=== PATIENT | female | born 1960 | race American Indian/Alaskan Native ===

== ENCOUNTER 2016-09-01 12:39 | Outpatient (CLI) | payer OTHER ==
--- NOTE | 2016-09-01 14:35 | Cat Scan Report ---
CT scan of sinuses: History; polyps of the nasal cavity. Findings: There is complete opacification of the right maxillary sinus and the right nasal cavity. The medial wall of the right maxillary sinus appears thin. Obstructed right ostiomeatal complex. Nasal septum is in the midline. Marked mucosal thickening of the right frontal sinus and right sphenoid sinus. Left frontal ethmoid and maxillary sinus appears patent and well pneumatized. Impression: Opacified regions of the right maxillary sinus, the right ethmoid sinus ,right frontal and right sphenoid could be due to extensive mucosal thickening or coalescence of multiple polyps or inflammatory or neoplastic process.
== END 2016-09-01 12:40 | disposition home or self-care (01) ==
LOC: CT 12:39
PROVIDERS: ATTEND Otolaryngology
DX: J33.0 Polyp of nasal cavity (principal)
CPT/HCPCS: 70486

== ENCOUNTER 2019-09-18 10:02 | Emergency (ER) | payer OTHER ==
[2019-09-18 10:11] VITALS: BP 158/89
[2019-09-18] MEDS ORDERED: IBUPROFEN 800 MG TAB PO ONE (13:11)
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
--- NOTE | 2019-09-18 13:56 | XRay Report ---
Lumbar spine 3 views INDICATION: Low back pain. IMPRESSION: Multilevel discogenic and facet type arthropathy particularly at L5-S1 with there is mild bilateral neural foraminal narrowing. Signer Name: Davey Hong MD Signed: 09/18/2019 1:52 PM Workstation Name: [id number]
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
== END 2019-09-18 16:50 | disposition home or self-care (01) ==
LOC: ED 10:02
DX: S46.912A Strain of unspecified muscle, fascia and tendon at shoulder and upper arm level, left arm, initial encounter (principal); S39.012A Strain of muscle, fascia and tendon of lower back, initial encounter; Z91.040 Latex allergy status; Z90.710 Acquired absence of both cervix and uterus; Z79.899 Other long term (current) drug therapy; V49.49XA Driver injured in collision with other motor vehicles in traffic accident, initial encounter; Y93.89 Activity, other specified; Y92.410 Unspecified street and highway as the place of occurrence of the external cause; Y99.8 Other external cause status
CPT/HCPCS: 72100

== ENCOUNTER 2021-01-31 10:43 | Observation (INO) | payer SELFPAY ==
[2021-01-31 14:13] LABS: Basophils % (Auto) 0.8 % (0.0-1.8); Eosinophils # (Auto) 0.1 K/mm3 (0.0-0.4); Eosinophils % (Auto) 1.1 % (0.0-4.3); Hematocrit 37.5 % (30.3-42.9); Hemoglobin 12.7 gm/dl (10.1-14.3); Lymphocytes # (Auto) 3.1 K/mm3 (1.2-5.4); Lymphocytes % (Auto) 54.8 % (13.4-35.0); Mean Corpuscular HGB Conc 34 % (30-34); Mean Corpuscular Volume 99 fl (79-97); Monocytes # (Auto) 0.1 K/mm3 (0.0-0.8); Monocytes % (Auto) 1.4 % (0.0-7.3); Platelet Count 250 K/mm3 (140-440); Red Cell Distribution Width 13.3 % (13.2-15.2)
[2021-01-31 14:39] LABS: Alanine Aminotransferase 11 units/L (7-56); Albumin 4.1 g/dL (3.9-5); Blood Urea Nitrogen 9 mg/dL (7-17); Calcium 9.7 mg/dL (8.4-10.2); Hemolysis Index 33
[2021-01-31 15:03] LABS: BUN/Creatinine Ratio 15
--- NOTE | 2021-01-31 15:23 | XRay Report ---
CHEST 2 VIEWS INDICATION / CLINICAL INFORMATION: Chest pain. COMPARISON: None available. FINDINGS: SUPPORT DEVICES: None. HEART / MEDIASTINUM: The heart size and pulmonary vasculature are normal. The aorta is normal in ama rachael. LUNGS / PLEURA: No significant pulmonary or pleural abnormality. No pneumothorax. ADDITIONAL FINDINGS: No significant additional findings. IMPRESSION: No acute findings. Signer Name: Greg Andujar MD Signed: 01/31/2021 3:19 PM Workstation Name: [id number]
--- NOTE | 2021-01-31 17:46 | Emergency Department Report ---
ED Chest Pain HPI - General Chief Complaint: Back Pain/Injury Stated Complaint: LOWER BACK PAINS Time Seen by Provider: 01/31/21 16:50 Source: patient Mode of arrival: Ambulatory Limitations: No Limitations - History of Present Illness Initial Comments: 60-year-old female with only known medical history being hyperlipidemia presents complaining of left-sided chest pain that started this morning. Patient states that at approximately 8 AM, after she had woken up and gone to work, she began to feel a pain in the left side of her chest near the shoulder. The pain is described as a tightness and it was radiating down her left shoulder, arm, to her hand. While having the pain, she felt short of breath but denies any associated palpitations, nausea, diaphoresis, or any other symptoms. Of note, the patient reports that for the past 2 weeks or so she has been having intermittent pain in her right side and right lower back area lasting few minutes at a time and happening 2-3 times per day for the last 2 weeks. Her main concern was the chest pain which lasted for several hours and did not resolve until just prior to my interview and assessment. Other than the mentioned symptoms, she denies any associated headache, vision change, fever/chills, focal weakness, sensory changes, confusion, cough, abdominal pain, nausea/vomiting, dysuria, hematuria, or any other complaints. - Related Data Previous Rx's Medication Instructions Recorded Last Taken Type Cyclobenzaprine HCl [Flexeril 5 MG 5 mg PO QHS PRN #10 tab 09/18/19 Unknown Rx TAB] Ibuprofen [Motrin] 600 mg PO Q8H PRN #20 tablet 09/18/19 Unknown Rx Allergies Allergy/AdvReac Type Severity Reaction Status Date / Time latex Allergy Unknown Itching Verified 02/01/21 04:19 grass pollen-perennial rye, Allergy Headache Verified 02/01/21 02:17 standar Vitamin D AdvReac Unknown Headache Uncoded 02/01/21 04:19 Heart Score - HEART Score History: Highly suspicious EKG: Normal Age: 45-65 Risk factors: 1-2 risk factors Troponin: < normal limit HEART Score: 4 - EKG Read Time Time EKG Completed: 10:58 EKG Read Time: 11:05 ED Review of Systems ROS: Stated complaint: LOWER BACK PAINS Other details as noted in HPI Constitutional: denies: chills, fever Eyes: denies: eye pain, vision change ENT: denies: throat pain, congestion Respiratory: shortness of breath (with chest pain). denies: cough Cardiovascular: chest pain. denies: palpitations, edema, syncope Gastrointestinal: denies: abdominal pain, nausea, vomiting Genitourinary: denies: dysuria, frequency Musculoskeletal: back pain. denies: myalgia Skin: denies: rash Neurological: denies: headache, weakness, numbness, paresthesias ED Past Medical Hx - Past Medical History Previous Medical History?: Yes Additional medical history: high cholesterol - Surgical History Past Surgical History?: Yes Additional Surgical History: Partial hysterectomy - Social History Smoking Status: Current Every Day Smoker Substance Use Type: None - Medications Home Medications: Home Medications Medication Instructions Recorded Confirmed Last Taken Type Cyclobenzaprine HCl [Flexeril 5 MG 5 mg PO QHS PRN #10 tab 09/18/19 Unknown Rx TAB] Ibuprofen [Motrin] 600 mg PO Q8H PRN #20 tablet 09/18/19 Unknown Rx ED Physical Exam - General Limitations: No Limitations - Other Other exam information: GENERAL: Well developed and well nourished. No acute distress HEENT: Normocephalic. No obvious signs of trauma. Moist mucous membranes. EYES: Extraocular movements are intact. Pupils are equal round and reactive to light bilaterally NECK: Supple. Trachea is midline. LUNGS: Nonlabored breathing. Equal chest rise bilaterally. Clear to auscultation bilaterally. HEART/CARDIOVASCULAR: Regular rate and rhythm. No murmurs or rubs. VASCULAR: 2+ peripheral pulses. Cap refill < 2 seconds ABDOMEN: Abdomen is soft and nondistended. There is no significant tenderness, guarding or rebound. SKIN: Skin is warm and dry NEURO: Patient is awake, alert, and oriented. 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 No focal deficits. Normal motor and sensory exam throughout. Normal speech. Normal gait. MUSCULOSKELETAL: No obvious deformities. No significant tenderness. Normal ROM throughout. BACK/SPINE: No midline tenderness or step-offs of the C/T/L spine. No costovertebral angle tenderness. ED Course Vital Signs 01/31/21 01/31/21 01/31/21 10:51 16:51 16:52 Temperature 98.5 F Pulse Rate 72 64 63 Respiratory 18 18 18 Rate Blood Pressure 165/88 Blood Pressure 144/75 [Left] O2 Sat by Pulse 97 99 99 Oximetry 01/31/21 01/31/21 01/31/21 16:56 17:00 17:10 Temperature Pulse Rate 67 64 Respiratory 16 15 Rate Blood Pressure 158/93 158/93 Blood Pressure 158/93 [Left] O2 Sat by Pulse 100 100 Oximetry 01/31/21 01/31/21 01/31/21 17:20 17:30 17:40 Temperature Pulse Rate 62 62 61 Respiratory 14 13 19 Rate Blood Pressure 158/93 158/93 158/93 Blood Pressure [Left] O2 Sat by Pulse 100 100 100 Oximetry 01/31/21 01/31/21 01/31/21 17:50 18:00 18:10 Temperature Pulse Rate Respiratory Rate Blood Pressure 158/93 158/93 158/93 Blood Pressure [Left] O2 Sat by Pulse 99 100 100 Oximetry 01/31/21 18:20 Temperature Pulse Rate Respiratory Rate Blood Pressure 158/93 Blood Pressure [Left] O2 Sat by Pulse 100 Oximetry NAHUM score - N[place]um Score Age > 65: (0) No Aspirin use within the Past 7 Days: (0) No 3 or more CAD Risk Factors: (0) No 2 or more Angina events in past 24 hrs: (1) Yes Known CAD with more than 50% Stenosis: (0) No Elevated Cardiac Markers: (0) No ST Deviation Greater than 0.5mm: (0) No NAHUM Score: 1 ED Medical Decision Making - Lab Data Result diagrams: 01/31/21 23:09 01/31/21 23:09 Lab Results 01/31/21 01/31/21 01/31/21 Range/Units 13:59 13:59 17:10 WBC 5.7 (4.5-11.0) K/mm3 RBC 3.80 (3.65-5.03) M/mm3 Hgb 12.7 (10.1-14.3) gm/dl Hct 37.5 (30.3-42.9) % MCV 99 H (79-97) fl MCH 34 H (28-32) pg MCHC 34 (30-34) % RDW 13.3 (13.2-15.2) % Plt Count 250 (140-440) K/mm3 Lymph % (Auto) 54.8 H (13.4-35.0) % [place] % (Auto) 1.4 (0.0-7.3) % Eos % (Auto) 1.1 (0.0-4.3) % Baso % (Auto) 0.8 (0.0-1.8) % Lymph # (Auto) 3.1 (1.2-5.4) K/mm3 [place] # (Auto) 0.1 (0.0-0.8) K/mm3 Eos # (Auto) 0.1 (0.0-0.4) K/mm3 Baso # (Auto) 0.0 (0.0-0.1) K/mm3 Seg Neutrophils % 41.9 (40.0-70.0) % Seg Neutrophils # 2.4 (1.8-7.7) K/mm3 PT 13.5 (12.2-14.9) Sec. INR 0.98 (0.87-1.13) APTT 30.8 (24.2-36.6) Sec. Sodium 138 (137-145) mmol/L Potassium 3.7 (3.6-5.0) mmol/L Chloride 105.4 (98-107) mmol/L Carbon Dioxide 22 (22-30) mmol/L Anion Gap 14 mmol/L BUN 9 (7-17) mg/dL Creatinine 0.6 (0.6-1.2) mg/dL Estimated GFR > 60 ml/min BUN/Creatinine Ratio 15 % Glucose 162 H (65-100) mg/dL Calcium 9.7 (8.4-10.2) mg/dL Magnesium (1.7-2.3) mg/dL Total Bilirubin 0.30 (0.1-1.2) mg/dL AST 15 (5-40) units/L ALT 11 (7-56) units/L Alkaline Phosphatase 118 (35-129) units/L Troponin T < 0.010 (0.00-0.029) ng/mL NT-Pro-B Natriuret Pep 30.46 (0-900) pg/mL Total Protein 7.6 (6.3-8.2) g/dL Albumin 4.1 (3.9-5) g/dL Albumin/Globulin Ratio 1.2 % 01/31/21 01/31/21 Range/Units 17:10 19:57 WBC (4.5-11.0) K/mm3 RBC (3.65-5.03) M/mm3 Hgb (10.1-14.3) gm/dl Hct (30.3-42.9) % MCV (79-97) fl MCH (28-32) pg MCHC (30-34) % RDW (13.2-15.2) % Plt Count (140-440) K/mm3 Lymph % (Auto) (13.4-35.0) % [place] % (Auto) (0.0-7.3) % Eos % (Auto) (0.0-4.3) % Baso % (Auto) (0.0-1.8) % Lymph # (Auto) (1.2-5.4) K/mm3 [place] # (Auto) (0.0-0.8) K/mm3 Eos # (Auto) (0.0-0.4) K/mm3 Baso # (Auto) (0.0-0.1) K/mm3 Seg Neutrophils % (40.0-70.0) % Seg Neutrophils # (1.8-7.7) K/mm3 PT (12.2-14.9) Sec. INR (0.87-1.13) APTT (24.2-36.6) Sec. Sodium (137-145) mmol/L Potassium (3.6-5.0) mmol/L Chloride (98-107) mmol/L Carbon Dioxide (22-30) mmol/L Anion Gap mmol/L BUN (7-17) mg/dL Creatinine (0.6-1.2) mg/dL Estimated GFR ml/min BUN/Creatinine Ratio % Glucose (65-100) mg/dL Calcium (8.4-10.2) mg/dL Magnesium 1.80 (1.7-2.3) mg/dL Total Bilirubin (0.1-1.2) mg/dL AST (5-40) units/L ALT (7-56) units/L Alkaline Phosphatase (35-129) units/L Troponin T < 0.010 < 0.010 (0.00-0.029) ng/mL NT-Pro-B Natriuret Pep (0-900) pg/mL Total Protein (6.3-8.2) g/dL Albumin (3.9-5) g/dL Albumin/Globulin Ratio % - EKG Data -: EKG Interpreted by Me - EKG Data 01/31/21 20:48 Normal sinus rhythm. Normal axis. Normal intervals. No significant ST segment or T wave abnormalities. Low voltage EKG - Radiology Data CT ABDOMEN AND PELVIS WITH IV CONTRAST INDICATION: right side/back pain, 100ML OF 0MNI 350 GIVEN , per patient chest pain and lower back pain . COMPARISON: None available. TECHNIQUE: All CT scans at this facility use dose modulation, automated exposure control, iterative reconstruction or weight based dosing, when appropriate, to reduce radiation dose to as low as reasonably achievable. FINDINGS: Lung Bases: No significant abnormality. Skeletal System: No acute abnormality. ABDOMEN: Liver: Punctate hypodensity in the superior left lobe is likely a cyst. No significant abnormality. Gallbladder: No significant abnormality. Bile Ducts: No significant abnormality. Pancreas: No significant abnormality. Spleen: No significant abnormality. Adrenals: No significant a bnormality. Right Kidney: No significant abnormality. Left Kidney: No significant abnormality. Upper GI tract: No significant abnormality. Lymph Nodes: No significant adenopathy. Aorta: No significant abnormality. Additional Find CTA CHEST WITH IV CONTRAST INDICATION: assess for PE/dissection, 100ML OF 0MNI 350 GIVEN , per patient chest pain and lower back pain . TECHNIQUE: Axial CT images were obtained through the chest after injection of IV contrast. 3 plane MIP reconstructions were produced. All CT scans at this location are performed using CT dose reduction for ALARA by means of automated exposure control. COMPARISON: None available. FINDINGS: Pulmonary Arteries: No pulmonary emboli. Thoracic Aorta: No acute abnormality. Heart: Normal. Lungs: No acute air space or interstitial disease. Pleura: No pleural effusion. No pneumothorax. Lymph Nodes: No significant adenopathy. Additional Findings: None. Upper Abdomen: No acute findings. Skeletal Structures: No significant osseous abnormality. IMPRESSION: 1. No CT evidence for pulmonary embolism. 2. No acute findings. Signer Name: Jeremy Dueñas MD Signed: 01/31/2021 6:14 PM Workstation Name: [email or web address] [email or web address] [id number] INDICATION / CLINICAL INFORMATION: Chest pain. COMPARISON: None available. FINDINGS: SUPPORT DEVICES: None. HEART / MEDIASTINUM: The heart size and pulmonary vasculature are normal. The aorta is normal in caliber. LUNGS / PLEURA: No significant pulmonary or pleural abnormality. No pneumothorax. ADDITIONAL FINDINGS: No significant additional findings. IMPRESSION: No acute findings. Signer Name: Greg Andujar MD Signed: 01/31/2021 2:19 PM Workstation Name: ANA MARÍA - Medical Decision Making 60-year-old female presenting with left-sided chest pain which started this morning which was radiating to her left shoulder and down her left arm with associated shortness of breath. It lasted for multiple hours and then resolved just prior to my interview. She is also been having 2 weeks of intermittent right lower back/side pain. She has no other symptoms or complaints. She is afebrile and with normal vital signs other than elevated blood pressure. She has a benign physical exam including no CVA tenderness. Nonetheless, her heart score is 4. Labs were drawn in triage and reveal no significant leukocytosis or anemia. Kidney function is normal and there is no significant electrolyte abnormalities. Initial troponin is negative. Given the nature of the patient's complaint and the duration of pain we will obtain CTA of the chest/abdomen/pelvis to assess for evidence of pulmonary embolism, aortic dissection, and or intra-abdominal abnormality. The patient is currently chest pain-free. CTA of the chest reveals no evidence of dissection or pulmonary embolism. CT of the abdomen pelvis is within normal limits. Patient remains free of chest pain at this time. Nonetheless given that her heart score is 4, she will be admitted to the hospitalist for further work-up and management. Aspirin has been ordered. All of this was discussed with the patient who expressed understanding and agreement with the plan of care. I signed the case out to Dr. Cleaning who will admit the patient to the on-call hospitalist. Urinalysis is still pending. Critical care attestation.: If time is entered above; I have spent that time in minutes in the direct care of this critically ill patient, excluding procedure time. ED Disposition Clinical Impression: Chest pain, Right flank pain, Hypertension Disposition: OP ADMIT IP TO THIS HOSP Is pt being admited?: Yes Condition: Stable
[2021-01-31 17:47] LABS: INR 0.98 (0.87-1.13)
[2021-01-31 17:48] LABS: Partial Thromboplastin Time 30.8 Sec. (24.2-36.6)
--- NOTE | 2021-01-31 19:18 | Cat Scan Report ---
CTA CHEST WITH IV CONTRAST INDICATION: assess for PE/dissection, 100ML OF 0MNI 350 GIVEN , per patient chest pain and lower back pain . TECHNIQUE: Axial CT images were obtained through the chest after injection of IV contrast. 3 plane MIP reconstru ctions were produced. All CT scans at this location are performed using CT dose reduction for ALARA b y means of automated exposure control. COMPARISON: None available. FINDINGS: Pulmonary Arteries: No pulmonary emboli. Thoracic Aorta: No acute abnormality. Heart: Normal. Lungs: No acute air space or interstitial disease. Pleura: No pleural effusion. No pneumothorax. Lymph Nodes: No significant adenopathy. Additional Findings: None. Upper Abdomen: No acute findings. Skeletal Structures: No significant osseous abnormality. IMPRESSION: 1. No CT evidence for pulmonary embolism. 2. No acute findings. Signer Name: Jeremy Dueñas MD Signed: 01/31/2021 7:14 PM Workstation Name: [id number]
--- NOTE | 2021-01-31 19:27 | Cat Scan Report ---
CT ABDOMEN AND PELVIS WITH IV CONTRAST INDICATION: right side/back pain, 100ML OF 0MNI 350 GIVEN , per patient chest pain and lower back pain . COMPARISON: None available. TECHNIQUE: All CT scans at this facility use dose modulation, automated exposure control, iterative reconstructi on or weight based dosing, when appropriate, to reduce radiation dose to as low as reasonably achieva ble. FINDINGS: Lung Bases: No significant abnormality. Skeletal System: No acute abnormality. ABDOMEN: Liver: Punctate hypodensity in the superior left lobe is likely a cyst. No significant abnormality. Gallbladder: No significant abnormality. Bile Ducts: No significant abnormality. Pancreas: No significant abnormality. Spleen: No significant abnormality. Adrenals: No significant abnormality. Right Kidney: No significant abnormality. Left Kidney: No significant abnormality. Upper GI tract: No significant abnormality. Lymph Nodes: No significant adenopathy. Aorta: No significant abnormality. Additional Findings: No significant abnormality. PELVIS: Colon: No acute abnormality. Urinary Bladder and Distal Ureters: No significant abnormality. Appendix: No significant abnormality. Lymph Nodes: No significant adenopathy. Additional Findings: None. IMPRESSION: 1. No acute process in the abdomen or pelvis. Signer Name: Jeremy Dueñas MD Signed: 01/31/2021 7:23 PM Workstation Name: [employer] [place]
[2021-01-31] MEDS ORDERED: ASPIRIN 325 MG TAB PO ONE (20:47)
[2021-01-31] MEDS ORDERED: MORPHINE 4 MG/1 ML INJ IV PRN (22:16)
[2021-01-31] MEDS ORDERED: NITROGLYCERIN 0.4 MG TAB SUBL SL PRN (22:16)
[2021-01-31] MEDS ORDERED: ACETAMINOPHEN 325 MG TAB PO PRN (22:16)
[2021-01-31] MEDS ORDERED: traMADol 50 MG TAB PO PRN (22:16)
[2021-01-31] MEDS ORDERED: IBUPROFEN 600 MG TAB PO PRN (22:18)
[2021-01-31] MEDS ORDERED: NON-FORMULARY EACH (Cyclobenzaprine Hcl [Flexeril 5 Mg Tab] 5 MG Tablet) PO PRN (22:18)
--- NOTE | 2021-01-31 22:23 | History and Physical Report ---
History of Present Illness Date of examination: 01/31/21 Date of admission: 01/31/21 21:33 Chief complaint: Chest pain History of present illness: 60-year-old female with history of hyperlipidemia was brought to the emergency room because of chest pain which is left-sided tightness radiating to the left shoulder since 8:00 this morning. While having the pain, she felt short of breath but denies any associated palpitations, nausea, diaphoresis, or any other symptoms. Of note, the patient reports that for the past 2 weeks or so she has been having intermittent pain in her right side and right lower back area lasting few minutes at a time and happening 2-3 times per day for the last 2 weeks. Her main concern was the chest pain which lasted for several hours . she denies any associated headache, vision change, fever/chills, focal weakness, sensory changes, confusion, cough, abdominal pain, nausea/vomiting, dysuria, hematuria, or any other complaints. In the emergency room initial cardiac enzyme is negative troponin is 0.010 Past History Past Medical History: hyperlipidemia Past Surgical History: hysterectomy Medications and Allergies Allergies Allergy/AdvReac Type Severity Reaction Status Date / Time latex Allergy Unknown Itching Verified 01/31/21 17:01 Home Medications Medication Instructions Recorded Confirmed Last Taken Type Cyclobenzaprine HCl [Flexeril 5 MG 5 mg PO QHS PRN #10 tab 09/18/19 Unknown Rx TAB] Ibuprofen [Motrin] 600 mg PO Q8H PRN #20 tablet 09/18/19 Unknown Rx Review of Systems Cardiovascular: chest pain, shortness of breath Respiratory: shortness of breath Exam - Constitutional Vitals: Temp Pulse Resp BP Pulse Ox 98.5 F 63 18 158/93 99 01/31/21 10:51 01/31/21 16:52 01/31/21 16:52 01/31/21 16:56 01/31/21 16:52 General appearance: Present: no acute distress, well-nourished - EENT Eyes: Present: PERRL ENT: hearing intact, clear oral mucosa - Neck Neck: Present: supple, normal ROM - Respiratory Respiratory effort: normal Respiratory: bilateral: CTA - Cardiovascular Heart Sounds: Present: S1 & S2. Absent: rub, click - Extremities Extremities: pulses symmetrical, No edema Peripheral Pulses: within normal limits - Abdominal General gastrointestinal: Present: soft, non-tender, non-distended, normal bowel sounds Female genitourinary: Present: normal - Integumentary Integumentary: Present: clear, warm, dry - Musculoskeletal Musculoskeletal: gait normal, strength equal bilaterally - Psychiatric Psychiatric: appropriate mood/affect, intact judgment & insight - Neurologic Neurologic: CNII-XII intact, moves all extremities HEART Score - HEART Score EKG: Normal Age: 45-65 Risk factors: 1-2 risk factors Troponin: Troponin T < 0.010 ng/mL (0.00-0.029) 01/31/21 19:57 Troponin: < normal limit Results - Labs CBC & Chem 7: 01/31/21 13:59 01/31/21 13:59 Labs: Laboratory Last Values WBC 5.7 K/mm3 (4.5-11.0) 01/31/21 13:59 RBC 3.80 M/mm3 (3.65-5.03) 01/31/21 13:59 Hgb 12.7 gm/dl (10.1-14.3) 01/31/21 13:59 Hct 37.5 % (30.3-42.9) 01/31/21 13:59 MCV 99 fl (79-97) H 01/31/21 13:59 MCH 34 pg (28-32) H 01/31/21 13:59 MCHC 34 % (30-34) 01/31/21 13:59 RDW 13.3 % (13.2-15.2) 01/31/21 13:59 Plt Count 250 K/mm3 (140-440) 01/31/21 13:59 Lymph % (Auto) 54.8 % (13.4-35.0) H 01/31/21 13:59 [place] % (Auto) 1.4 % (0.0-7.3) 01/31/21 13:59 Eos % (Auto) 1.1 % (0.0-4.3) 01/31/21 13:59 Baso % (Auto) 0.8 % (0.0-1.8) 01/31/21 13:59 Lymph # (Auto) 3.1 K/mm3 (1.2-5.4) 01/31/21 13:59 [place] # (Auto) 0.1 K/mm3 (0.0-0.8) 01/31/21 13:59 Eos # (Auto) 0.1 K/mm3 (0.0-0.4) 01/31/21 13:59 Baso # (Auto) 0.0 K/mm3 (0.0-0.1) 01/31/21 13:59 Seg Neutrophils % 41.9 % (40.0-70.0) 01/31/21 13:59 Seg Neutrophils # 2.4 K/mm3 (1.8-7.7) 01/31/21 13:59 PT 13.5 Sec. (12.2-14.9) 01/31/21 17:10 INR 0.98 (0.87-1.13) 01/31/21 17:10 APTT 30.8 Sec. (24.2-36.6) 01/31/21 17:10 Sodium 138 mmol/L (137-145) 01/31/21 13:59 Potassium 3.7 mmol/L (3.6-5.0) 01/31/21 13:59 Chloride 105.4 mmol/L (98-107) 01/31/21 13:59 Carbon Dioxide 22 mmol/L (22-30) 01/31/21 13:59 Anion Gap 14 mmol/L 01/31/21 13:59 BUN 9 mg/dL (7-17) 01/31/21 13:59 Creatinine 0.6 mg/dL (0.6-1.2) 01/31/21 13:59 Estimated GFR > 60 ml/min 01/31/21 13:59 BUN/Creatinine Ratio 15 % 01/31/21 13:59 Glucose 162 mg/dL (65-100) H 01/31/21 13:59 Calcium 9.7 mg/dL (8.4-10.2) 01/31/21 13:59 Magnesium 1.80 mg/dL (1.7-2.3) 01/31/21 17:10 Total Bilirubin 0.30 mg/dL (0.1-1.2) 01/31/21 13:59 AST 15 units/L (5-40) 01/31/21 13:59 ALT 11 units/L (7-56) 01/31/21 13:59 Alkaline Phosphatase 118 units/L (35-129) 01/31/21 13:59 Troponin T < 0.010 ng/mL (0.00-0.029) 01/31/21 19:57 NT-Pro-B Natriuret Pep 30.46 pg/mL (0-900) 01/31/21 13:59 Total Protein 7.6 g/dL (6.3-8.2) 01/31/21 13:59 Albumin 4.1 g/dL (3.9-5) 01/31/21 13:59 Albumin/Globulin Ratio 1.2 % 01/31/21 13:59 - Imaging and Cardiology Chest x-ray: report reviewed Assessment and Plan VTE prophylaxis?: Chemical Plan of care discussed with patient/family: Yes - Patient Problems (1) Acute coronary syndrome Current Visit: Yes Status: Acute Plan to address problem: Admit to the medical telemetry. Aspirin 81 mg p.o. daily. Nitroglycerin as needed. Lipitor 40 mg p.o. daily. Serial cardiac enzyme. Nuclear stress test Lexiscan. Consult cardiology if needed (2) Hyperlipidemia Current Visit: Yes Status: Acute Plan to address problem: Lipitor 40 mg p.o. daily we will recheck the lipid profile (3) Hypertension Current Visit: Yes Status: Acute Plan to address problem: Hydralazine 10 mg IV every 6 hours as needed. We will monitor the blood pressure closely (4) DVT prophylaxis Current Visit: Yes Status: Acute Plan to address problem: Heparin 5000 units subcu every 8 hours for DVT prophylaxis. Protonix 40 mg p.o. daily for GI prophylaxis. Patient is a full code
[2021-01-31] MEDS ORDERED: CYCLOBENZAPRINE 10 MG TAB PO PRN (22:43)
[2021-01-31 23:48] LABS: Basophils % (Auto) 0.4 % (0.0-1.8); Eosinophils # (Auto) 0.1 K/mm3 (0.0-0.4); Eosinophils % (Auto) 1.2 % (0.0-4.3); Hematocrit 37.4 % (30.3-42.9); Hemoglobin 12.3 gm/dl (10.1-14.3); Lymphocytes # (Auto) 3.9 K/mm3 (1.2-5.4); Lymphocytes % (Auto) 54.5 % (13.4-35.0); Mean Corpuscular HGB Conc 33 % (30-34); Mean Corpuscular Volume 100 fl (79-97); Monocytes # (Auto) 0.4 K/mm3 (0.0-0.8); Monocytes % (Auto) 5.4 % (0.0-7.3); Platelet Count 260 K/mm3 (140-440); Red Blood Count 3.76 M/mm3 (3.65-5.03)
[2021-02-01 00:42] LABS: BUN/Creatinine Ratio 13; Blood Urea Nitrogen 10 mg/dL (7-17); Calcium 9.6 mg/dL (8.4-10.2); Hemolysis Index 1
[2021-02-01 01:39] LABS: Chol/HDL Ratio 3.74 %; HDL Cholesterol 39 mg/dL (40-59); LDL Cholesterol,Direct 96 mg/dL (50-130)
[2021-02-01] MEDS ORDERED: HEPARIN 5,000 UNIT/1 ML VIAL SUB-Q SCH (06:00)
[2021-02-01] MEDS ORDERED: REGADENOSON 0.4 MG/5 ML INJ IV ONE (07:20)
[2021-02-01] MEDS ORDERED: PANTOPRAZOLE 40 MG TAB PO SCH (10:00)
[2021-02-01] MEDS ORDERED: ASPIRIN 81 MG TAB CHEW PO SCH (10:00)
--- NOTE | 2021-02-01 10:11 | Electrocardiograph Report ---
[facility] Test Date: 2021-01-31 Test Time: 10:58:59 Pat Name: LOKESH JACQUES Department: Room: A463 Gender: F Blueprint Duplicator: FADUMO : 1960 Requested By: JADA JOSE Order Number: [id number] Reading MD: Sebastian Paul Measurements Intervals [place] Rate: 64 P: 76 LA: 148 QRS: 35 QRSD: 77 T: -87 QT: 370 QTc: 383 Interpretive Statements Sinus rhythm Low voltage, precordial leads Borderline T abnormalities, diffuse leads No previous ECG available for comparison Electronically Signed On 02-01-2021 10:11:16 EDT by Sebastian Paul
--- NOTE | 2021-02-01 10:24 | Electrocardiograph Report ---
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
[2021-02-01 11:58] VITALS: BP 138/72
--- NOTE | 2021-02-01 14:21 | Discharge Summary ---
Providers - Providers Date of Admission: 01/31/21 21:33 Date of discharge: 02/01/21 Attending physician: NATALIIA GODINEZ MD 01/31/21 Consult to Cardiac Rehabilitation [CONS] Routine Reason For Exam: Phase I Primary care physician: SOPHIA BECKMAN MD Hospitalization Condition: Good Hospital course: 60-year-old -[place] female presents with atypical chest pain which completely resolved by the time she was discharged to the hospital. Patient declined a stress test, echocardiogram completely normal, troponin is normal. Patient was comfortable being discharged home. - Patient Problems (1) atypical chest pain Current Visit: Yes Status: Acute Plan to address problem: Patient declined stress test Troponin negative Echocardiogram completely normal (2) Hyperlipidemia Current Visit: Yes Status: Acute Plan to address problem: Lipitor 40 mg p.o. daily we will recheck the lipid profile (3) Hypertension Current Visit: Yes Status: Acute Plan to address problem: Patient's blood pressure is normalized Disposition: DC- TO HOME OR SELFCARE Final Discharge Diagnosis (Prints w/discharge instructions): Atypical chest pain. Hypertension. Hyperlipidemia Time spent for discharge: 25 minutes Core Measure Documentation - Palliative Care Palliative Care/ Comfort Measures: Not Applicable - Core Measures Any of the following diagnoses?: none, history only Exam - Physical Exam Narrative exam: General appearance: no acute distress, well-nourished EENT: PERRL, EOM intact, hearing intact, clear oral mucosa Neck: Present: supple, normal ROM Respiratory: bilateral CTA, negative: rales, rhonchi, wheezing Cardiovascular: Regular rate/rhythm, Normal S1 & S2. No gallop, rub Extremities: no ischemia, No edema, normal temperature, normal color, Full ROM Abdominal: soft, no tenderness, non-distended, normal bowel sounds Integumentary: Present: clear, warm, dry no wounds, no erythema noted Psychiatric: appropriate mood/affect, intact judgment & insight Neurologic: CNII-XII intact, moves all extremities, no sensory or motor abnormalities - Constitutional Vitals: Temp Pulse Resp BP Pulse Ox 97.6 F 58 L 19 138/72 99 02/01/21 11:49 02/01/21 11:49 02/01/21 11:49 02/01/21 11:49 02/01/21 11:49 Plan Activity: no restrictions Diet: regular Follow up with: SOPHIA BECKMAN MD [Primary Care Provider] - 3-5 Days
--- NOTE | 2021-02-01 18:29 | Electrocardiograph Report ---
[facility] Test Date: 2021-02-01 Test Time: 11:21:58 Pat Name: LOKESH JACQUES Department: Room: A463 1 Gender: F [employer]: DALE : 1960 Requested By: SUE MOTLEY Order Number: [id number] Reading MD: Sebastian Paul Measurements Intervals [place] Rate: 59 P: 52 NH: 150 QRS: 41 QRSD: 61 T: -59 QT: 561 QTc: 555 Interpretive Statements Sinus rhythm Borderline T abnormalities, diffuse leads Prolonged QT interval Compared to ECG 02/01/2021 07:31:38 T-wave abnormality now present Prolonged QT interval now present Atrial premature complex(es) no longer present Electronically Signed On 02-01-2021 18:29:11 EDT by Sebastian Paul
== END 2021-02-01 17:19 | disposition home or self-care (01) ==
LOC: ED 10:43 → 4A 21:33
PROVIDERS: ADMIT Hospitalist; ATTEND Family Medicine
DX: I24.9 Acute ischemic heart disease, unspecified (principal); I10 Essential (primary) hypertension; E78.5 Hyperlipidemia, unspecified; R10.9 Unspecified abdominal pain; F17.210 Nicotine dependence, cigarettes, uncomplicated; Z90.710 Acquired absence of both cervix and uterus
CPT/HCPCS: 36415; 71046; 71275; 74177; 80053; 80061; 83735; 83880; 84484; 85025; 85610; 85730; 93005; 93306; 96372; 99285; 99406; G0378; J1644; Q9967; 80048; 87641